=== PATIENT | male | born 1960 | race Caucasian/White ===

== ENCOUNTER 2016-09-08 18:44 | Emergency (ER) | payer OTHER ==
[~2016-09-08] VITALS: Ht 175.3 cm; Wt 97.0 kg
[2016-09-08 18:48] VITALS: TEMP 37.5; O2SAT 95; Ht 175.3 cm; Wt 97.0 kg
[2016-09-08 19:17] LABS: BASO % 0.3 %; BASO ABS # 0.02 K/uL (0-0.2); COMPLETE YES; EOS % 1.6 %; HEMATOCRIT 40.6 % (42-52); IG% 0.4 %; LYMPH % 31.6 %; LYMPH ABS # 2.14 K/uL (1.2-3.4); MEAN CELL VOLUME 86.6 fL (80-100); MEAN CORPUSCULAR HEMOGLOBIN 30.5 pg (25-34); MEAN CORPUSCULAR HGB CONC 35.2 g/dl (32-36); MEAN PLATELET VOLUME 9.3 fL (7.4-10.4); MONO % 7.8 %; NEUT % 58.3 %; PLATELET COUNT 198 K/uL (130-400); RED BLOOD COUNT 4.69 M/uL (4.7-6.1); WHITE BLOOD COUNT 6.78 K/uL (4.8-10.8)
[2016-09-08 19:28] LABS: PARTIAL THROMBOPLASTIN RATIO 1.1; PROTHROMBIN TIME (PATIENT) 10.2 SECONDS (9.0-12.0)
[2016-09-08 19:33] LABS: BLOOD UREA NITROGEN 10 mg/dl (7-18); BUN/CREATININE RATIO 12.1 (10-20); CALCIUM 8.8 mg/dl (8.5-10.1); CARBON DIOXIDE 28 mmol/L (21-32); CHLORIDE 104 mmol/L (98-107); CREATININE 0.84 mg/dl (0.60-1.40); GLUCOSE 175 mg/dl (70-99); POTASSIUM 3.8 mmol/L (3.5-5.1); SODIUM 142 mmol/L (136-145)
[2016-09-08] MEDS ORDERED: METO-217 PO (19:33)
[2016-09-08] MEDS ORDERED: RANI150T3 PO (19:37)
[2016-09-08] MEDS ORDERED: MELO15TA4 PO (19:37)
[2016-09-08] MEDS ORDERED: SIMV40TA2 PO (19:37)
[2016-09-08] MEDS ORDERED: MCR5 PO (19:37)
[2016-09-08] MEDS ORDERED: ACET-1256 PO (19:37)
[2016-09-08] MEDS ORDERED: LISI40TA PO (19:37)
[2016-09-08 19:38] LABS: CKMB/CK RATIO 3.3 (0-3.0)
--- NOTE | 2016-09-08 19:58 | DIAGNOSTIC IMAGING REPORT ---
CHEST ONE VIEW PORTABLE HISTORY: Evaluate Fever/Sepsis COMPARISON: None. FINDINGS: The heart is top normal in size. Mild diffuse interstitial thickening which may be chronic. No pleural effusions. No pneumothorax. Increased markings at the left lung base in comparison to the right. IMPRESSION: 1. Increased markings within the left lung base in comparison to the right. This could represent atelectasis or pneumonia. 2. Mild diffuse interstitial thickening which may be chronic. Electronically signed by: Justin Celaya M.D. 09/08/2016 7:56 PM Dictated Date/Time: 09/08/2016 7:55 PM
--- NOTE | 2016-09-08 20:26 | EMERGENCY ROOM VISIT NOTE ---
History Report prepared by Esther: Pankaj Rosen Under the Supervision of: Dr. Lele Chao D.O. First contact with patient: 19:05 Chief Complaint: CHEST PAIN Stated Complaint: CHEST & NECK PAIN PAST 2 WKS Nursing Triage Summary: Pt arrived via [facility] from [facility]. Per EMS report, pt has had off and on chest pain for 3 weeks. With eack epsiode pt reports to [facility] and had EKG performed without change. Today pt began having CP and went to [facility] and had EKG, no reported change. Nitro given x3 without effect. EMS called. EMS gave pt 3 additional nitro and 324 ASA without effect. Pt currently rating pain at a 7/10. Pain radiates into left arm and left neck. Also complaining of headache and SOB. History of Present Illness The patient is a 56 year old male who presents to the Emergency Room via [facility] from [facility] with complaints of intermittent chest pain beginning three weeks prior to arrival. He currently rates his discomfort as a 7/10 in severity. The patient associates dizziness, weakness, and left shoulder pain with today's symptoms. He states his symptoms worsened a little today. The patient states his discomfort improves with lying down. The patient notes he has a history of cardiac stents. As per EMS, the patient has reported to the [facility] for each episode of chest pain and had unchanged EKGs performed. Today, the patient had chest pain and went to the [facility], where he had another unchanged EKG. EMS states the patient was given three Nitro without relief. Source of History: patient Onset: three weeks [employer] CL[employer] Position: chest Symptom Intensity: 7/10 Timing: intermittent Modifying Factors (Relieving): other (lying down) Associated Symptoms: + weakness Note: Associated symptoms: dizziness, left shoulder pain Review of Systems See HPI for pertinent positives & negatives. A total of 10 systems reviewed and were otherwise negative. Past Medical & Surgical Surgical Problems: (1) H/O heart artery stent Family History Patient reports no known family medical history. Social History Smoking Status: Current Every Day Smoker Marital Status: Housing Status: other ([facility]) Current/Historical Medications Scheduled Azithromycin (Zithromax Z-Kofi), 0 PO UD Glyburide (Glyburide), 5 MG PO BID Lisinopril (Zestril), 40 MG PO BID Meloxicam (Mobic), 15 MG PO DAILY Metoprolol Succinate (Toprol Xl), 50 MG PO BID Ranitidine Hcl (Zantac), 150 MG PO BID Simvastatin (Zocor), 40 MG PO HS Scheduled PRN Acetaminophen (Tylenol), 1,000 MG PO BID PRN for Pain Allergies Coded Allergies: No Known Allergies (Unverified , 09/08/16) Physical Exam Vital Signs Date Time Temp Pulse Resp B/P Pulse Ox O2 Delivery O2 Flow Rate FiO2 09/08/16 20:05 77 147/81 09/08/16 19:09 84 09/08/16 18:48 37.5 87 16 151/80 97 Room Air 09/08/16 18:48 95 Room Air 09/08/16 18:44 95 Room Air Physical Exam CONSTITUTIONAL/VITAL SIGNS: Reviewed / noted above. GENERAL: Non-toxic in appearance. INTEGUMENTARY: Warm, dry, and [place]. HEAD: Normocephalic. EYES: without scleral icterus or trauma. ENT/OROPHARYNX: clear and moist. LYMPHADENOPATHY/NECK: Is supple without lymphadenopathy or meningismus. RESPIRATORY: Lungs clear and equal. CARDIOVASCULAR: Regular rate and rhythm. GI/ABDOMEN: Soft and nontender. No organomegaly or pulsatile mass. No rebound or guarding. Normal bowel sounds. EXTREMITIES: Warm and well perfused. BACK: No CVA tenderness. NEUROLOGICAL: Intact without focal deficits. PSYCHIATRIC: normal affect. MUSCULOSKELETAL: Normally developed with good muscle tone. Medical Decision & Procedures ER Provider Diagnostic Interpretation: X ray results and stated below per my interpretation and radiology interpretation. CHEST ONE VIEW PORTABLE HISTORY: Evaluate Fever/Sepsis COMPARISON: None. FINDINGS: The heart is top normal in size. Mild diffuse interstitial thickening which may be chronic. No pleural effusions. No pneumothorax. Increased markings at the left lung base in comparison to the right. IMPRESSION: 1. Increased markings within the left lung base in comparison to the right. This could represent atelectasis or pneumonia. 2. Mild diffuse interstitial thickening which may be chronic. Electronically signed by: Justin Celaya M.D. 09/08/2016 7:56 PM Laboratory Results 09/08/16 18:23 Red Blood Count 4.69, Mean Corpuscular Volume 86.6, Mean Corpuscular Hemoglobin 30.5, Mean Corpuscular Hemoglobin Concent 35.2, Mean Platelet Volume 9.3, Neutrophils (%) (Auto) 58.3, Lymphocytes (%) (Auto) 31.6, Monocytes (%) (Auto) 7.8, Eosinophils (%) (Auto) 1.6, Basophils (%) (Auto) 0.3, Neutrophils # (Auto) 3.95, Lymphocytes # (Auto) 2.14, Monocytes # (Auto) 0.53, Eosinophils # (Auto) 0.11, Basophils # (Auto) 0.02 09/08/16 18:23 Test 09/08/16 18:23 White Blood Count 6.78 K/uL (4.8-10.8) Red Blood Count 4.69 M/uL (4.7-6.1) Hemoglobin 14.3 g/dL (14.0-18.0) Hematocrit 40.6 % (42-52) Mean Corpuscular Volume 86.6 fL (80-100) Mean Corpuscular Hemoglobin 30.5 pg (25-34) Mean Corpuscular Hemoglobin Concent 35.2 g/dl (32-36) Platelet Count 198 K/uL (130-400) Mean Platelet Volume 9.3 fL (7.4-10.4) Neutrophils (%) (Auto) 58.3 % Lymphocytes (%) (Auto) 31.6 % Monocytes (%) (Auto) 7.8 % Eosinophils (%) (Auto) 1.6 % Basophils (%) (Auto) 0.3 % Neutrophils # (Auto) 3.95 K/uL (1.4-6.5) Lymphocytes # (Auto) 2.14 K/uL (1.2-3.4) Monocytes # (Auto) 0.53 K/uL (0.11-0.59) Eosinophils # (Auto) 0.11 K/uL (0-0.5) Basophils # (Auto) 0.02 K/uL (0-0.2) RDW Standard Deviation 37.9 fL (36.4-46.3) RDW Coefficient of Variation 12.1 % (11.5-14.5) Immature Granulocyte % (Auto) 0.4 % Immature Granulocyte # (Auto) 0.03 K/uL (0.00-0.02) Prothrombin Time 10.2 SECONDS (9.0-12.0) Prothromb Time International Ratio 1.0 (0.9-1.1) Activated Partial Thromboplast Time 27.5 SECONDS (21.0-31.0) Partial Thromboplastin Ratio 1.1 Anion Gap 10.0 mmol/L (3-11) Est Creatinine Clear Calc Drug Dose 114.2 ml/min Estimated GFR () 114.2 Estimated GFR (Non- 98.6 BUN/Creatinine Ratio 12.1 (10-20) Calcium Level 8.8 mg/dl (8.5-10.1) Total Creatine Kinase 94 U/L (39-308) Creatine Kinase MB 3.1 ng/ml (0.5-3.6) Creatine Kinase MB Ratio 3.3 (0-3.0) Troponin I < 0.015 ng/ml (0-0.045) Lipase 99 U/L (73-393) Laboratory results as stated above per my review. ECG Indication: chest pain Rate (beats per minute): 88 Rhythm: normal sinus Findings: no ectopy, other (no acute injury) ED Course 1905: Previous medical records were reviewed. The patient was evaluated in room A3. A complete history and physical examination was performed. 2026: On reevaluation, the patient is doing well. I discussed the results and findings with the patient. He verbalized agreement of the treatment plan. The patient was discharged home. 2026: Zithromax 500mg po. Medical Decision the differential was considered includes acute myocardial infarction, acute coronary syndrome, myocarditis, pericarditis, pericardial effusions /tamponad, esophageal perforation, thoracic aortic dissection, pulmonary embolism, pneumonia, pneumothorax, pancreatitis, shingles, acute cholecystitis, perforated abdominal viscus. This is a 56-year-old male who presents to the ED with a chief complaint of chest pain. The patient also reports weakness, dizziness, neck and shoulder pain. He states the symptoms started 3 weeks ago but will not worse this morning. His physical exam was unremarkable. His CBC is normal. Troponin was negative. Glucose was 175. Lipase is 99. Chest x-ray reveals findings in the left lung base that could be related to atelectasis versus pneumonia. The patient does report a new cough. He has no fevers or other symptoms of pneumonia. The patient was told results the test. He is felt to be stable for discharge and outpatient follow-up. He was discharged on Zithromax. Impression Primary Impression: Retrosternal chest pain Additional Impression: Pneumonia Scribe Attestation The scribe's documentation has been prepared under my direction and personally reviewed by me in its entirety. I confirm that the note above accurately reflects all work, treatment, procedures, and medical decision making performed by me. Departure Information Dispostion Home / Self-Care Prescriptions Azithromycin (ZITHROMAX Z-KOFI) 250 Mg Tab 0 PO UD, #1 PKT 2 TABS DAY 1, THEN 1 TAB DAILY FOR 4 DAYS Prov: Lele Chao D.O. 09/08/16 Referrals Luiz VERA (PCP) Forms HOME CARE DOCUMENTATION FORM, IMPORTANT VISIT INFORMATION Patient Instructions My [facility] Additional Instructions Follow-up with your doctor for further care and evaluation in 1-2 days. Return to the emergency department for worsening or new symptoms or any concerns. You have been examined and treated today on an emergency basis only. This is not a substitute for, or an effort to provide, complete comprehensive medical care. It is impossible to recognize and treat all injuries or illnesses in a single emergency department visit. It is therefore important that you follow up closely with your doctor. Call as soon as possible for an appointment. Problem Qualifiers
[2016-09-08] MEDS ORDERED: AZITTAB PO (20:29)
[2016-09-08 20:38] VITALS: BP 130/88; PULSE 77; O2SAT 96
[2016-09-08] MEDS ORDERED: AZITHROMYCIN 250 MG TAB PO ONE (20:45)
[2016-09-08] MEDS ORDERED: NTRGSL/4 UT (20:55)
[2016-09-08] MEDS ORDERED: LSNP/30 PO (20:55)
[2016-09-08] MEDS ORDERED: HYDR50CA2 PO (20:55)
[2016-09-08] MEDS ORDERED: METO-551 PO (20:55)
[2016-09-08] MEDS ORDERED: LPT/40 PO (20:55)
[2016-09-08] MEDS ORDERED: CARB200T3 PO ×2 (20:55)
[2016-09-08] MEDS ORDERED: GLIM1TAB2 PO (20:56)
== END 2016-09-08 20:38 | disposition home or self-care (01) ==
LOC: EDBD 18:44 → C.EDA 19:00
DX: R07.2 Precordial pain (principal); J18.9 Pneumonia, unspecified organism; F17.200 Nicotine dependence, unspecified, uncomplicated; Z95.5 Presence of coronary angioplasty implant and graft